=== PATIENT | female | born 1980 | race Two or more races ===

== ENCOUNTER 2022-07-17 15:57 | Emergency (ER) | payer OTHER ==
[~2022-07-17] VITALS: Ht 160 cm; Wt 72.6 kg
[2022-07-17] MEDS ORDERED: OMEPRAZOLE MAGN20 MG PO (22:09)
[2022-07-17] MEDS ORDERED: METRONIDAZOLE500 MG PO (22:09)
[2022-07-17] MEDS ORDERED: CIPRO500 MG PO (22:09)
== END 2022-07-17 22:44 | disposition home or self-care (01) ==
LOC: ER 15:57
DX: K52.9 Noninfective gastroenteritis and colitis, unspecified (principal)

== ENCOUNTER 2022-09-16 09:30 | Emergency (ER) | payer OTHER ==
[~2022-09-16] VITALS: Ht 160 cm; Wt 72.6 kg
[~2022-09-16 09:30] MED LIST: CIPRO500 MG PO; METRONIDAZOLE500 MG PO; OMEPRAZOLE MAGN20 MG PO
[2022-09-16] MEDS ORDERED: CLONAZEPAM0.5 MG (09:39)
== END 2022-09-16 10:23 | disposition home or self-care (01) ==
LOC: ER 09:30
DX: M54.9 Dorsalgia, unspecified (principal)